=== PATIENT | female | born 1995 | race Caucasian/White ===

== ENCOUNTER 2022-06-02 16:48 | Emergency (ER) | payer MEDICAID, OTHER ==
[~2022-06-02] VITALS: Ht 152.4 cm; Wt 73.0 kg
[2022-06-02 16:59] VITALS: BP 137/80
== END 2022-06-02 21:27 | disposition left against medical advice (07) ==
LOC: ER 16:48
DX: Z53.21 Procedure and treatment not carried out due to patient leaving prior to being seen by health care provider (principal)
CPT/HCPCS: 99281